=== PATIENT | male | born 1955 | race Two or more races ===

== ENCOUNTER → 2024-10-28 | Outpatient (CLI) | payer MEDICARE, MEDICAID, SELFPAY ==
--- NOTE | 2024-10-28 10:00 | XR_ITS ---
Examination: DAVID, hepatobiliary radioisotope scan Gallbladder ejection fraction study. Date and time of exam: October 28, 2024 0951 hours INDICATIONS: Sharp left upper abdominal pain after eating 10 years Technique: 6.1 mCi of 99M Hepatolite administered. Serial imaging then obtained from immediate through 60 minutes. 1.4 mcg selective catheter Kinevac administered for gallbladder ejection fraction study. Findings: Radioisotope activity within the liver is reasonably homogenous. Gallbladder, common bile duct small bowel activity noted Impression: Gallbladder activity Abnormal gallbladder ejection fraction, 2%, normal greater than 35%
== END | disposition home or self-care (01) ==
LOC: SNUC 09:27
PROVIDERS: PCP Student in an Organized Health Care Education/Training Program; Referring Provider Student in an Organized Health Care Education/Training Program; Visit Provider Student in an Organized Health Care Education/Training Program
DX: R93.2 Abnormal findings on diagnostic imaging of liver and biliary tract (principal)
CPT/HCPCS: 78226; A9537; J2805